=== PATIENT | male | born 1970 | race Caucasian/White ===

== ENCOUNTER 2020-03-14 00:35 | Inpatient (IN) | payer OTHER ==
[2020-03-14] VITALS (45 sets, daily range): BP systolic 124–166; BP diastolic 66–96
[~2020-03-14] VITALS: Ht 177.8 cm; Wt 157.9 kg
--- NOTE | 2020-03-14 00:40 | NUR ---
PT CAME TO THE ED C/O SOB X 1 DAY. PT TACHYPNEIC. PER EMS BS>400 ON HTE SCENE. PT DENIED ANY HX OF DIABETES.. PT AAOX4, SATTING 100% ON ROOM AIR. PT CONNECTED TO THE SENIOR LOSS CONTROL SPECIALIST AND POX
--- NOTE | 2020-03-14 01:09 | NUR ---
EKG AT BEDSIDE
--- NOTE | 2020-03-14 01:09 | NUR ---
BLOOD COLLECTED AND SENT TO LAB
--- NOTE | 2020-03-14 01:11 | NUR ---
XRAY AT BEDSIDE
[2020-03-14 01:13] LABS: BASOPHILS # (AUTO) 0.2 /CMM (0.0-0.2); BASOPHILS % (AUTO) 1.3 % (0.0-2.0); HEMATOCRIT 55 % (39-51); LYMPHOCYTES # (AUTO) 2.1 /CMM (0.8-4.8); LYMPHOCYTES % (AUTO) 11.1 % (20.0-44.0); MEAN CORPUSCULAR HGB CONC 31 g/dl (31.0-36.0); MEAN CORPUSCULAR VOLUME 93 fL (80-96); MONOCYTES % (AUTO) 5.2 % (2.0-12.0); NEUTROPHILS # (AUTO) 15.6 /CMM (1.8-8.9); NEUTROPHILS % (AUTO) 82.4 % (43.0-81.0); PLATELET COUNT (AUTO) 295 /CMM (150-450); RED BLOOD CELL COUNT(AUTO) 5.97 MIL/uL (4.5-6.0); WHITE BLOOD COUNT (AUTO) 18.9 K/uL (4.3-11.0)
[2020-03-14 01:50] LABS: ALANINE AMINOTRANSFERASE 20 U/L (12-78); ALBUMIN 3.4 g/dL (3.4-5.0); ALKALINE PHOSPHATASE 121 U/L (46-116); ASPARTATE AMINOTRANSFERASE 12 U/L (15-37); B-TYPE NATRIURETIC PEPTIDE 154 PG/ML (0-125); BILIRUBIN,DIRECT 0.1 mg/dL (0.0-0.2); BILIRUBIN,TOTAL 0.4 mg/dL (0.2-1.0); CALCIUM, SERUM 8.4 mg/dL (8.5-10.1); CHLORIDE 99 mmol/L (98-107); CREATININE 1.7 mg/dL (0.6-1.3); POTASSIUM 3.3 mmol/L (3.5-5.1); SODIUM SERUM 137 mmol/L (136-145); TOTAL PROTEIN, SERUM 7.7 g/dL (6.4-8.2); UREA NITROGEN, BLOOD 17 mg/dL (7-18)
--- NOTE | 2020-03-14 01:52 | NUR ---
COVID SWAB COLLECTED AND SENT TO LAB
[2020-03-14 02:03] LABS: CARBON DIOXIDE 6 mmol/L (21-32); GLUCOSE 545 mg/dL (74-106)
[2020-03-14 02:04] LABS: D-DIMER 1.06 mg/L(FEU (0.17-0.50)
[2020-03-14] MEDS ORDERED: INSULIN REGULAR, HUMAN 100 UNIT/ML 10 ML VIAL ONE (02:06)
--- NOTE | 2020-03-14 02:20 | NUR ---
PATIENT IS STARTED ON IV INSULIN DRIP AT 7 UNITS PER HOUR PER MD'S ORDER AND 3 RN VERIFIED DOSAGE. PATIENT IS ON WARD SERVICE SUPERVISOR.
[2020-03-14] MEDS ORDERED: INSULIN REGULAR, HUMAN 100 UNIT in IV NS 0.9% 99 ML IV PRN ×4 (02:30→07:30)
[2020-03-14] MEDS ORDERED: IV NS 0.9% 1,000 ML IV ONE ×2 (02:30)
--- NOTE | 2020-03-14 04:26 | NUR ---
BREATHING TX IN PROGRESS
--- NOTE | 2020-03-14 04:26 | NUR ---
RT AT BEDSIDE
--- NOTE | 2020-03-14 04:28 | NUR ---
PATIENT IS AMBULATED TO THE RESTROOM WITH ASSISTANCE.
[2020-03-14] MEDS ORDERED: IPRATROPIUM NEB FS 0.5 MG/2.5 ML AMPUL.NEB NEB ONE (04:30)
[2020-03-14] MEDS ORDERED: ALBUTEROL FS 2.5 MG/3 ML VIAL.NEB NEB ONE (04:30)
--- NOTE | 2020-03-14 04:46 | NUR ---
PATIENT IS FOUND WITH THE IV LINE PULLED OUT WITH INSULIN DRIPPING ON FLOOR.
--- NOTE | 2020-03-14 04:47 | NUR ---
IV INSULIN DRIP IS CONTINUED ON THE LEFT HAND.
--- NOTE | 2020-03-14 04:47 | NUR ---
Jimena johnson in ED - 03/14/20 at 0526 by KELLIE IV INSULIN IS CONTINUED ON THE LEFT HAND IV
--- NOTE | 2020-03-14 04:50 | NUR ---
UNABLE TO FIND AVAILABLE VEIN FOR IV ACCESS. WILL KEEP TRYING.
--- NOTE | 2020-03-14 05:13 | NUR ---
IV ESTABLISHED ON RIGHT FOREARM 20G.
--- NOTE | 2020-03-14 06:54 | NUR ---
BED ASSIGNMENT 251
--- NOTE | 2020-03-14 07:10 | NUR ---
ATTEMPTED TO GIVE REPORT, NURSE NOT AVAILABLE
[2020-03-14] MEDS ORDERED: ONDANSETRON HCL/PF 4 MG/2 ML VIAL IVP PRN (07:30)
[2020-03-14] MEDS ORDERED: IV NS 0.9% 1,000 ML IV PRN (07:30)
[2020-03-14] MEDS ORDERED: Z GUARD REMEDY 2 OZ OINT TP PRN (07:30)
--- NOTE | 2020-03-14 07:39 | NUR ---
REPORT GIVEN TO STUART HAUSER FOR RACHAEL
--- NOTE | 2020-03-14 08:00 | NUR ---
RN NOTES RECEIVED PT FROM ER , A/Ox4, ON 2L O2 N/C , SOB NOTED, O2 SAT 98-100%, ON TELE SR , L HAND AND FOREARM IV SITS G 20 , CLEAN, DRY AND INTACT, INSULIN GTT AT 10 U/HR, PT HAS DISTENDED ABDOMEN, BUT SOFT TO TOUCH, NO SKIN ISSUES NOTED, SR UP x3, CALL LIGHT WITHIN EASY REACH, BED LOCKED AND IN LOWEST POSITION, CONTINUE TO MONITOR AND CHECK BG Q1 HR PER ORDER .
[2020-03-14] MEDS: ENOXAPARIN SODIUM 40 MG/0.4 ML DISP.SYRIN SQ SCH (08:22)
[2020-03-14] MEDS: PANTOPRAZOLE 40 MG VIAL IV SCH (08:22)
[2020-03-14] MEDS: POTASSIUM CL. PREMIX PERIPHER. 50 ML IV SCH ×8 (08:37→16:07)
[2020-03-14] MEDS: Potassium Chloride 40 MEQ in IV NS 0.9% 1,000 ML IV SCH ×2 (09:07→17:29)
[2020-03-14 09:14] LABS: CALCIUM, SERUM 8.8 mg/dL (8.5-10.1); CREATININE 1.8 mg/dL (0.6-1.3); MAGNESIUM 2.7 mg/dL (1.8-2.4); POTASSIUM 3.2 mmol/L (3.5-5.1)
[2020-03-14 11:55] LABS: CALCIUM, SERUM 8.7 mg/dL (8.5-10.1); CREATININE 1.9 mg/dL (0.6-1.3)
[2020-03-14 12:02] LABS: POTASSIUM 2.7 mmol/L (3.5-5.1)
--- NOTE | 2020-03-14 13:00 | NUR ---
RN NOTES PT IS UNABLE TO VOID, CRIMPING PRESS OPERATOR NOITFED , RIZO INSERTED PER CRIMPING PRESS OPERATOR ORDER, 600 CLEAR YELLOW URINE DRAINED .
[2020-03-14 13:56] LABS: MAGNESIUM 2.6 mg/dL (1.8-2.4); PHOSPHORUS 2.2 mg/dL (2.5-4.9)
--- NOTE | 2020-03-14 14:00 | NUR ---
RN NOTES DR WAGNER SAGASTUME REGARDING BMP RESULTS.
[2020-03-14 16:40] LABS: CALCIUM, SERUM 9.1 mg/dL (8.5-10.1); CREATININE 1.9 mg/dL (0.6-1.3); POTASSIUM 3.4 mmol/L (3.5-5.1)
[2020-03-14 16:49] LABS: MAGNESIUM 2.4 mg/dL (1.8-2.4); PHOSPHORUS 1.3 mg/dL (2.5-4.9)
[2020-03-14] MEDS ORDERED: Sodium Phosphate 15 MMOL in IV NS 0.9% 245 ML IV SCH (18:00)
--- NOTE | 2020-03-14 18:00 | NUR ---
RN NOTES DR WAGNER SAGASTUME REGARDING BMP RESULTS.
[2020-03-14 18:04] LABS: POTASSIUM 3.8 mmol/L (3.5-5.1)
[2020-03-14 18:08] LABS: MAGNESIUM 2.4 mg/dL (1.8-2.4); PHOSPHORUS 1.1 mg/dL (2.5-4.9)
--- NOTE | 2020-03-14 19:00 | NUR ---
RN NOTES DR FINNEY PAGED REGARDING BLOOD GLUCOSE RESULTS , NO RETURN CALLS YET .
--- NOTE | 2020-03-14 19:20 | NUR ---
RN NOTES VSS STABLE, IVF NS WITH 40 MEQ KCL RUNNING, PT MARGAUX ANY DISTRESS, NO RETURN CALL FROM KEVIN RASMUSSEN ENDOSE TO EFFICIENCY CLERK NURSE FOR CONTINUITY OF CARE.
--- NOTE | 2020-03-14 19:46 | NUR ---
RN NOTE DR. EDWARD CALLED BACK WITH ORDER TO DC CURRENT IVF AND ADMINISTER NS D5 WITH KCL 10 MEQ @ 125CC/HOUR. ORDER NOTED AND CARRIED OUT.
[2020-03-14] MEDS ORDERED: IV D5/ NS 10 MEQ KCL 1000 ML IV PRN ×2 (20:00)
[2020-03-14] MEDS ORDERED: SODIUM CHLORIDE IV ONE ×2 (20:00)
[2020-03-14] MEDS ORDERED: POTASSIUM CHLORIDE IV ONE ×2 (20:00)
[2020-03-14] MEDS ORDERED: DEXTROSE IV ONE ×2 (20:00)
--- NOTE | 2020-03-14 20:30 | NUR ---
RN NOTE SPOKE TO ANGEL LUIS FROM PHARMACY. IFV STILL BEING PREPARED. WILL ADMINISTER ONCE DELIVERED TO UNIT.
[2020-03-14 20:40] LABS: CALCIUM, SERUM 8.8 mg/dL (8.5-10.1); CREATININE 2.1 mg/dL (0.6-1.3); POTASSIUM 3.7 mmol/L (3.5-5.1)
[2020-03-14 20:52] LABS: PHOSPHORUS 0.9 mg/dL (2.5-4.9)
[2020-03-14 20:53] LABS: MAGNESIUM 2.3 mg/dL (1.8-2.4)
[2020-03-14] MEDS ORDERED: Potassium Chloride 40 MEQ in IV NS 0.9% 1,000 ML IV PRN (21:00)
--- NOTE | 2020-03-14 21:04 | NUR ---
RN NOTE SEEN AND EXAMINED BY BASIL CHAPARRO NP. WITH ORDER FOR NEW INSULIN DRIP PROTOCOL BLOOD SUGAR X 2.8/100 EQUALS INSULIN DRIP RATE. ALSO WITH ORDER TO DC CURRENT IVF AND ADMINISTER NS D10 @ 80CC/HOUR, NS KCL40 MEQ @ 100CC/HOUR, AND KPHOS 30MILLIMOLS. ORDER NOTED AND CARRIED OUT.
[2020-03-14] MEDS ORDERED: Sodium Chloride 154 MEQ in IV 10% DEXTROSE 1,000 ML IV PRN (22:00)
[2020-03-14] MEDS ORDERED: IV 10% DEXTROSE 1,000 ML IV PRN (22:00)
[2020-03-14] MEDS: POTASSIUM PHOSPHATE MM 15 MMOL in IV NS 0.9% 250 ML IV SCH (22:56)
--- NOTE | 2020-03-14 23:05 | NUR ---
RN NOTE NEW ORDER FROM BASIL CHAPARRO NP. INSULIN PROTOCOL : BLOOD SUGAR X 3/100 = INSULIN RATE
[2020-03-14] MEDS: BLOOD SUGAR DIAGNOSTIC 1 EACH STRIP IN SCH (23:09)
[2020-03-14 23:39] LABS: CREATININE 2.3 mg/dL (0.6-1.3); POTASSIUM 3.4 mmol/L (3.5-5.1)
[2020-03-14 23:43] LABS: MAGNESIUM 2.3 mg/dL (1.8-2.4)
[2020-03-14 23:44] LABS: PHOSPHORUS 0.9 mg/dL (2.5-4.9)
--- NOTE | 2020-03-14 23:45 | NUR ---
RN NOTE RECEIVED ALERT FOR PHOSPHROUS 0.9. PT IS ALREADY ON POTASSIUM PHOSPHATE IV RUNNING. WILL FOLLOW UP WHEN INFUSION IS COMPLETED. PT WITH REPEAT BMP EVERY 3 HOURS.
[2020-03-15] VITALS (15 sets, daily range): BP systolic 122–158; BP diastolic 71–86
[2020-03-15] MEDS: BLOOD SUGAR DIAGNOSTIC 1 EACH STRIP IN SCH ×11 (00:02→10:00)
[2020-03-15] MEDS: POTASSIUM PHOSPHATE MM 15 MMOL in IV NS 0.9% 250 ML IV SCH (01:05)
[2020-03-15] MEDS: INSULIN REGULAR, HUMAN 100 UNIT in IV NS 0.9% 99 ML IV PRN ×4 (02:06→09:43)
[2020-03-15 02:38] LABS: CREATININE 2.2 mg/dL (0.6-1.3); MAGNESIUM 2.2 mg/dL (1.8-2.4); POTASSIUM 3.3 mmol/L (3.5-5.1)
[2020-03-15 02:46] LABS: APPEARANCE,URINE CLEAR (CLEAR); BILIRUBIN,URINE SMALL (NEGATIVE); BLOOD, URINE MODERATE Ery/uL (NEGATIVE); COLOR,URINE YELLOW (YELLOW); KETONES,URINE >=80 (NEGATIVE); LEUKOCYTE ESTERASE ,URINE NEGATIVE (NEGATIVE); NITRITE, URINE NEGATIVE (NEGATIVE); PH,URINE 5.5 (5.0-8.0); PROTEIN,URINE 100 mg/dl (NEGATIVE); UGLUCOSE >=1000 mg/dL (NEGATIVE); UROBILINOGEN,URINE 0.2 EU/dL (0.2)
[2020-03-15 02:58] LABS: BACTERIA,URINE Few /HPF (None Seen); CREATININE, URINE 41.6 MG/DL (30.0-125.0); RBC,URINE 0-2 /HPF (0-2); SQUAMOUS EPITHELIAL CELL,UR Few /HPF (None Seen); URINE TOTAL PROTEIN 159.1 mg/dL (0-11.9); WBC,URINE 0-2 /HPF (0-3)
[2020-03-15 03:37] LABS: EOSINOPHIL,URINE None Seen
--- NOTE | 2020-03-15 04:05 | NUR ---
RN NOTE PT ALERT AND ORIENTED X 3. OFFERED TO BATHE PATIENT AND CHANGE LINENS BUT PT REFUSED STATING THAT "IT'S OKAY." PT AGREED FOR PARTIAL LINEN CHANGE.
[2020-03-15 04:47] LABS: BASOPHILS % (AUTO) 0.1 % (0.0-2.0); HEMATOCRIT 46 % (39-51); HEMOGLOBIN 15.1 g/dL (13.5-17.5); LYMPHOCYTES % (AUTO) 8.1 % (20.0-44.0); MEAN CORPUSCULAR HGB CONC 33 g/dl (31.0-36.0); MEAN CORPUSCULAR VOLUME 87 fL (80-96); MONOCYTES # (AUTO) 1.1 /CMM (0.1-1.30); MONOCYTES % (AUTO) 9.1 % (2.0-12.0); NEUTROPHILS # (AUTO) 9.8 /CMM (1.8-8.9); NEUTROPHILS % (AUTO) 82.7 % (43.0-81.0); PLATELET COUNT (AUTO) 151 /CMM (150-450); RED BLOOD CELL COUNT(AUTO) 5.36 MIL/uL (4.5-6.0); WHITE BLOOD COUNT (AUTO) 11.9 K/uL (4.3-11.0)
[2020-03-15 05:30] LABS: ALBUMIN 2.8 g/dL (3.4-5.0); BILIRUBIN,TOTAL 0.2 mg/dL (0.2-1.0); CALCIUM, SERUM 8.8 mg/dL (8.5-10.1); CREATININE 2.2 mg/dL (0.6-1.3); PHOSPHORUS 1.3 mg/dL (2.5-4.9); POTASSIUM 3.1 mmol/L (3.5-5.1); TOTAL PROTEIN, SERUM 6.3 g/dL (6.4-8.2)
[2020-03-15 05:34] LABS: THYROID STIMULATING HORMONE 0.275 uIU/mL (0.358-3.74)
--- NOTE | 2020-03-15 05:40 | NUR ---
RN NOTE NOTED WITH POTASSIUM OF 3.1. PT IS CURRENTLY RUNNING KCL 40MEQ IN NS IV @ 100CC/HOUR. NOTIFIED BASIL CHAPARRO NP.
--- NOTE | 2020-03-15 06:41 | NUR ---
RN NOTE BASIL CHAPARRO AWARE OF CURRENT LABS. WITH ORDER TO ADMINISTER KCL 20MEQ IVPB. ORDER NOTED AND CARRIED OUT.
[2020-03-15] MEDS: POTASSIUM CL. PREMIX PERIPHER. 50 ML IV SCH ×2 (06:49→08:28)
--- NOTE | 2020-03-15 07:16 | NUR ---
RN CLOSING NOTE PT AWAKE AND ALERT X 3. PT CURRENTLY ON ROOM AIR AND WITHOUT SIGNS OF RESPIRATORY DISTRESS. RIZO CATHETER PATENT AND IN PLACE DRAINING CLEAR YELLOW URINE. IF MEDICATIONS RUNNING ORDERED WITHOUT SIGNS OF COMPLICATIONS AT SITES. ALL NEEDS MET AND ATTENDED TO. CALL LIGHT WITHIN REACH, SAFETY MEASURES IN PLACE, ENDORSED TO STUART FRANK FOR CONTINUAITON OF CARE.
--- NOTE | 2020-03-15 07:30 | NUR ---
RN OPENING NOTE: Patient received in bed and asleep. Easily awakens but appears to be groggy. Alert, awake and oriented x4 and able to make needs known. No pain reported nor noted at the moment. Tele monitor showing sinus rhythm in the 80s. On room air with no resp. distress and no SOB noted. IV sites clean, dry, patent and intact. Iv infusion of D10 @ 80mls/hr, NS KCL 40meq @ 100mls/hr and scheduled bag of KCL 10meq and current insulin drip infusing and running well. No adverse reactions noted. Received report to communicate information only to Mother. Call light in reach. Bed locked, low and at semi-barrera's position. Side rails up x3. Safety ensured and observed. Will continue to monitor.
[2020-03-15] MEDS: PANTOPRAZOLE 40 MG VIAL IV SCH (09:41)
[2020-03-15] MEDS: ENOXAPARIN SODIUM 40 MG/0.4 ML DISP.SYRIN SQ SCH (09:43)
--- NOTE | 2020-03-15 10:00 | NUR ---
RN NOTE: Informed patient that called earlier and asked for an update regarding his condition but per his request, no information was given. Patient's mother (Jyada goddard) also called and was given an update regarding his condition.
[2020-03-15 11:35] LABS: CALCIUM, SERUM 9.2 mg/dL (8.5-10.1); CREATININE 2.1 mg/dL (0.6-1.3); MAGNESIUM 2.5 mg/dL (1.8-2.4); PHOSPHORUS 1.5 mg/dL (2.5-4.9)
[2020-03-15] MEDS ORDERED: INSULIN REGULAR, HUMAN 100 UNIT/ML 10 ML VIAL SQ PRN (12:30)
[2020-03-15] MEDS: BLOOD SUGAR DIAGNOSTIC 1 EACH STRIP VI SCH ×3 (13:00→22:35)
[2020-03-15] MEDS: INSULIN REGULAR, HUMAN 100 UNIT/ML 3 ML VIAL SQ PRN ×2 (13:00→17:28)
[2020-03-15] MEDS ORDERED: *INSULIN REGULAR(HUMULIN R)HUM 100 UNIT/ML VIAL SQ PRN (13:00)
[2020-03-15] MEDS ORDERED: DEXTROSE 50%-WATER 50 ML DISP.SYRIN IV PRN (13:00)
--- NOTE | 2020-03-15 13:00 | NUR ---
rn note: accucheck machine used for patient earlier was not transmitting results. Accucheck results for q1h checks as follows: 0800: 256 0900: 219 1000: 229 1100: 253 1200: 250
--- NOTE | 2020-03-15 14:10 | NUR ---
GREEN TIRE INSPECTOR NOTE: PATIENT TRANSFERRED IN STABLE CONDITION TO [facility] WITH ENDORSEMENT GIVEN TO STUART DAMICO. PATIENT WAS SEEN EARLIER BY DR. WEISS WITH NEW ORDERS NOTED AND CARRIED OUT.
[2020-03-15] MEDS: POTASSIUM PHOSPHATE MM 7.5 MMOL in IV NS 0.9% 100 ML IV SCH ×2 (17:29→20:48)
[2020-03-15] MEDS: glipiZIDE 10 MG TABLET PO SCH (17:30)
[2020-03-15] MEDS: INSULIN GLARGINE, 100 UNIT/ML CARTRIDGE SQ SCH (17:58)
--- NOTE | 2020-03-15 19:50 | NUR ---
ms johana initial notes received report from am nurse Bhavya and seen pt in bed awake and alert watching tv at this time , no signs of any distress noted . in room air. he still with IV infusing on his right forearm. Encourage him to used the call light if he needs some help or needs the nurse. kept him warm and comfortable at all times. Place call light at reach will continue monitoring.
[2020-03-15 23:06] LABS: CALCIUM, SERUM 9.3 mg/dL (8.5-10.1); CREATININE 2.3 mg/dL (0.6-1.3); PHOSPHORUS 2.6 mg/dL (2.5-4.9); POTASSIUM 2.9 mmol/L (3.5-5.1)
[2020-03-16] MEDS ORDERED: DEXTROSE 50%-WATER 50 ML DISP.SYRIN IV PRN (00:30)
[2020-03-16] MEDS ORDERED: POTASSIUM CHLORIDE 20 MEQ TAB.PRT.SR PO ONE (00:30)
[2020-03-16] MEDS: BLOOD SUGAR DIAGNOSTIC 1 EACH STRIP IN SCH ×6 (01:20→21:12)
--- NOTE | 2020-03-16 02:07 | NUR ---
miner placer note B blood sugar checked as ordered 258, 12 units of insulin given as ordered. Potassium 80 meq po given as well as ordered. pt tolerated well. no n/v noted. no signs of hyper glycemia noted. will continue monitoring.
[2020-03-16] MEDS: INSULIN REGULAR, HUMAN 100 UNIT/ML 3 ML VIAL SQ PRN ×6 (02:09→20:40)
--- NOTE | 2020-03-16 06:19 | NUR ---
ms lead ramp agent notes pt resting with eyes closed but arouses to touch, denies any pain or any discomfort. Blood sugar checked done 251, 12 units of insulin SQ given as ordered. no signs of hyper glycemia noted. Morning care also done. Metzger to gravity draining well with clear yellow output noted .all due meds given and all needs met. kept him warm and comfortable at all times. will continue monitoring. place call light at reach.
[2020-03-16 07:32] LABS: CALCIUM, SERUM 9.6 mg/dL (8.5-10.1); CREATININE 2.2 mg/dL (0.6-1.3); MAGNESIUM 2.6 mg/dL (1.8-2.4); PHOSPHORUS 2.3 mg/dL (2.5-4.9)
[2020-03-16 07:41] LABS: BASOPHILS % (AUTO) 0.2 % (0.0-2.0); HEMATOCRIT 43 % (39-51); MEAN CORPUSCULAR HGB CONC 32 g/dl (31.0-36.0); MEAN CORPUSCULAR VOLUME 86 fL (80-96); MONOCYTES # (AUTO) 0.7 /CMM (0.1-1.30); MONOCYTES % (AUTO) 10.6 % (2.0-12.0); NEUTROPHILS # (AUTO) 5.1 /CMM (1.8-8.9); NEUTROPHILS % (AUTO) 75.2 % (43.0-81.0); PLATELET COUNT (AUTO) 134 /CMM (150-450); RED BLOOD CELL COUNT(AUTO) 5.05 MIL/uL (4.5-6.0); WHITE BLOOD COUNT (AUTO) 6.8 K/uL (4.3-11.0)
[2020-03-16 08:00] VITALS: BP 152/97
[2020-03-16] MEDS: glipiZIDE 10 MG TABLET PO SCH ×2 (08:57→16:48)
[2020-03-16] MEDS: PANTOPRAZOLE 40 MG VIAL IV SCH (08:57)
[2020-03-16] MEDS: ENOXAPARIN SODIUM 40 MG/0.4 ML DISP.SYRIN SQ SCH (09:02)
[2020-03-16] MEDS: INSULIN GLARGINE, 100 UNIT/ML CARTRIDGE SQ SCH ×2 (09:03→20:38)
[2020-03-16] MEDS: POTASSIUM CHLORIDE 20 MEQ TAB.PRT.SR PO SCH ×2 (10:19→12:05)
[2020-03-16] MEDS ORDERED: Sodium Bicarbonate 100 MEQ in IV 1/2NS 1000 ML 1,000 ML IV PRN (10:30)
[2020-03-16] MEDS ORDERED: POTASSIUM CHLORIDE 10 MEQ TABLET.SA PO ONE (10:30)
[2020-03-16] MEDS ORDERED: IV NS 0.9% 1,000 ML IV PRN (12:00)
[2020-03-16] MEDS ORDERED: K PHOS NEUTRAL 250 MG TABLET PO ONE (12:30)
[2020-03-16 16:00] VITALS: BP 177/91
[2020-03-16 20:00] VITALS: BP 132/71
--- NOTE | 2020-03-16 21:44 | NUR ---
IVF CLARIFICATION PATIENT HAS TWO SEPARATE IVF ORDERED. CONTACTED CRISTAL FOR CLIARIFICATION. NS TO BE DISCONTINUED. AND PT TO BE CONTINUED. ON 09/01 NS WITH SODIUM BICARB A 50 ML PER HOUR.
[2020-03-17] MEDS: INSULIN REGULAR, HUMAN 100 UNIT/ML 3 ML VIAL SQ PRN ×5 (00:40→21:52)
[2020-03-17] MEDS: BLOOD SUGAR DIAGNOSTIC 1 EACH STRIP IN SCH ×6 (00:44→21:50)
[2020-03-17 01:26] LABS: CALCIUM, SERUM 9.3 mg/dL (8.5-10.1); CREATININE 1.9 mg/dL (0.6-1.3); PHOSPHORUS 2.3 mg/dL (2.5-4.9)
[2020-03-17] MEDS ORDERED: NEUTRA PHOS 1 POWD.PACKET PO ONE (02:30)
[2020-03-17] MEDS ORDERED: POTASSIUM CHLORIDE 20 MEQ TAB.PRT.SR PO ONE (02:30)
--- NOTE | 2020-03-17 03:03 | NUR ---
LOW PHOS AND LOW POTASSIUM LEVEL; REPLACED WITH MEDS ORDERED. followed up with mau light manager of internal regarding labs wrote new orders for one time dose of potassium and kphos which were administered as ordered. patient in no apparent distress. eric marroquin to monitor new labs scheduled for this am.
--- NOTE | 2020-03-17 06:37 | NUR ---
MS CLOSING NOTES. PT RESTING WITH EYES CLOSED AROUSES TO VOICE, IN NO APPARENT DISTRESS RESP EVEN AND UNLABORED. PT REPORTS HE IS STILL FEELING SLEEPY. RIZO DRAINING TO GRAVITY CLEAR YELLOW URINE. IVF INFUSING TO LEFT HAND WITH NO S/S O INFILTRATION. DENIES PAIN CALL LIGHT IN REACH BED DOWN AND LOCED SRX2
--- NOTE | 2020-03-17 07:30 | NUR ---
MS/RN Opening note Patient received from assistant shift supervisor. A/O X4, vital signs within normal range for patient, no fevers or complaints of pin at this time. Heplock to left AC, infusing fluids at 75ml/hr, no signs of infiltration seen. Metzger catheter draining to gravity, clear colored urine. Call light within reach, bed in low setting, side rails X2 in upright position. Will continue to monitor and ensure safety. Addendum: 03/17/20 at 0931 by DENZEL MONTOYA IV fluids at 50ml/hr
[2020-03-17 08:00] VITALS: BP 154/75
[2020-03-17] MEDS: PANTOPRAZOLE 40 MG VIAL IV SCH (08:39)
[2020-03-17] MEDS: glipiZIDE 10 MG TABLET PO SCH ×2 (08:39→16:31)
[2020-03-17] MEDS: ENOXAPARIN SODIUM 40 MG/0.4 ML DISP.SYRIN SQ SCH (08:42)
[2020-03-17] MEDS: INSULIN GLARGINE, 100 UNIT/ML CARTRIDGE SQ SCH ×2 (08:54→21:54)
[2020-03-17 09:07] LABS: CALCIUM, SERUM 9.5 mg/dL (8.5-10.1); CREATININE 1.9 mg/dL (0.6-1.3); PHOSPHORUS 2.7 mg/dL (2.5-4.9); POTASSIUM 2.9 mmol/L (3.5-5.1)
--- NOTE | 2020-03-17 09:23 | NUR ---
MS/RN Blood sugar Blood sugar at 0900 222, insulin coverage as per order.
[2020-03-17] MEDS ORDERED: POTASSIUM CHLORIDE 20 MEQ TAB.PRT.SR PO SCH (10:00)
[2020-03-17] MEDS ORDERED: IV 1/2NS 1000 ML 1,000 ML IV PRN (10:55)
[2020-03-17] MEDS ORDERED: POTASSIUM CHLORIDE 10 MEQ TABLET.SA PO ONE (11:00)
--- NOTE | 2020-03-17 11:19 | NUR ---
MS/RN Labs Morning labs reviewed: -K+ 2.9 -BUN 27 -Creat 1.9 Potassium replaced with 20meq oral.
[2020-03-17 14:20] LABS: PTH, INTACT 18 pg/mL (15-65)
--- NOTE | 2020-03-17 14:49 | NUR ---
MS/RN S/B Dr Raman Seen by Dr Raman - patient to be discharged to home today, instructed to follow up with primary care doctor in one week for further diabetic teaching.
[2020-03-17 16:00] VITALS: BP 133/74
--- NOTE | 2020-03-17 17:45 | NUR ---
MS/RN Diabetic teaching Patient educated as to how to check blood glucose and how to draw up and inject insulin. Return demonstration given. All questions answered.
--- NOTE | 2020-03-17 18:02 | NUR ---
MS/RN End note Dr Raman called and informed that patient requires further education/teaching with regards to his new diagnose of diabetes. management accounts manager amade aware and will arrange for home health to be set up, with first visit being Thursday. Awaiting call back. All medications administered as ordered, all questions and concerns addressed, will endore to shiftman.
--- NOTE | 2020-03-17 19:10 | NUR ---
RN OPENING NOTES Received patient awake on bed, resting. On RA, no complaints made at this time. Pt requested to disconnect IV line, patient noted drinking fluids. For discharge, awaiting for home health and diabetes teachings. Will continue to monitor accordingly.
[2020-03-17 20:00] VITALS: BP 134/63
--- NOTE | 2020-03-17 22:29 | NUR ---
RN NOTES Taught and asked patient to return demonstrate blood sugar check and Insulin administration. Patient verbalized understanding, able to demonstrate procedure well. Will continue to review and reenforce education later.
[2020-03-18] MEDS: BLOOD SUGAR DIAGNOSTIC 1 EACH STRIP IN SCH ×3 (01:06→08:55)
[2020-03-18] MEDS: INSULIN REGULAR, HUMAN 100 UNIT/ML 3 ML VIAL SQ PRN ×2 (01:07→05:06)
--- NOTE | 2020-03-18 06:16 | NUR ---
RN CLOSING NOTES Pt asleep, easily awaken. On RA, no complaints made within the shift. All nursing needs attended. For dietary consult. For case management consult for home health. Initiated teachings on blood sugar check and insulin administration, return demonstration done by patient, reinforcement needed. Provided printed materials as indicated. Endorsed.
[2020-03-18 07:02] LABS: BASOPHILS % (AUTO) 0.3 % (0.0-2.0); EOSINOPHILS % (AUTO) 1.3 % (0.0-6.0); HEMATOCRIT 41 % (39-51); HEMOGLOBIN 13.3 g/dL (13.5-17.5); LYMPHOCYTES # (AUTO) 1.9 /CMM (0.8-4.8); LYMPHOCYTES % (AUTO) 33.3 % (20.0-44.0); MEAN CORPUSCULAR HGB CONC 33 g/dl (31.0-36.0); MEAN CORPUSCULAR VOLUME 85 fL (80-96); MONOCYTES # (AUTO) 0.7 /CMM (0.1-1.30); MONOCYTES % (AUTO) 11.3 % (2.0-12.0); NEUTROPHILS # (AUTO) 3.1 /CMM (1.8-8.9); NEUTROPHILS % (AUTO) 53.8 % (43.0-81.0); PLATELET COUNT (AUTO) 142 /CMM (150-450); RED BLOOD CELL COUNT(AUTO) 4.78 MIL/uL (4.5-6.0); WHITE BLOOD COUNT (AUTO) 5.8 K/uL (4.3-11.0)
--- NOTE | 2020-03-18 07:30 | NUR ---
RN Opening note Received patient in bed, AO x 4, able to responds all stimuli. Denies pain or distress, skin is warm to touch clean/dry, intact IV site. Respiratory even and unlabored in room air, no distress observed. Keep bed in locked with elevated HOB for secure airway and aspiration precaution. Call light within reach, will continue to monitor.
[2020-03-18] MEDS: glipiZIDE 10 MG TABLET PO SCH (07:39)
[2020-03-18 07:53] LABS: ALBUMIN 2.4 g/dL (3.4-5.0); BILIRUBIN,TOTAL 0.5 mg/dL (0.2-1.0); CALCIUM, SERUM 9.5 mg/dL (8.5-10.1); CREATININE 1.6 mg/dL (0.6-1.3); MAGNESIUM 2.2 mg/dL (1.8-2.4); TOTAL PROTEIN, SERUM 5.7 g/dL (6.4-8.2)
[2020-03-18 07:55] LABS: POTASSIUM 2.7 mmol/L (3.5-5.1)
[2020-03-18 08:16] VITALS: BP 153/92
[2020-03-18] MEDS: PANTOPRAZOLE 40 MG VIAL IV SCH (08:54)
[2020-03-18] MEDS: INSULIN GLARGINE, 100 UNIT/ML CARTRIDGE SQ SCH (08:58)
[2020-03-18] MEDS: ENOXAPARIN SODIUM 40 MG/0.4 ML DISP.SYRIN SQ SCH (09:00)
--- NOTE | 2020-03-18 10:53 | NUR ---
Potassium level 2.7 CL, received order potassium 80mEq po. noted and carried out.
[2020-03-18] MEDS: POTASSIUM CHLORIDE 20 MEQ TAB.PRT.SR PO SCH ×2 (11:16→12:18)
--- NOTE | 2020-03-18 13:00 | NUR ---
Given discharge instruction include new medication, check BS, side effraction, hypoglycemia and coping, patient verbally understanding. Denies pain or distress, in stable condition.
--- NOTE | 2020-03-18 14:30 | NUR ---
Spoke with Raisa beltran/Elizabeth regarding Lantus does not cover by insurance, blood sugar check directions. Dr. Raman agree to use pharmacy suggested substitute of insulin, and clarified direction of blood sugar check.
[2020-03-20 08:20] LABS: *SPE A/G RATIO 0.8 (0.7-1.7); *SPE ALBUMIN 2.4 g/dL (2.9-4.4); *SPE ALPHA-1-GLOBULIN 0.3 g/dL (0.0-0.4); *SPE ALPHA-2-GLOBULIN 0.9 g/dL (0.4-1.0); *SPE BETA GLOBULIN 1.1 g/dL (0.7-1.3); *SPE M-SPIKE Not Observed g/dL (Not Observed); *SPEGAMMA GLOBULIN 0.7 g/dL (0.4-1.8)
== END 2020-03-18 13:15 | disposition home health service (06) | DRG 420 ==
LOC: ER 00:37 → ICU 06:53 → MED 03-15 14:47
PROVIDERS: ADMIT Nurse Practitioner Acute Care
DX: E11.10 Type 2 diabetes mellitus with ketoacidosis without coma (principal); N17.0 Acute kidney failure with tubular necrosis; D72.829 Elevated white blood cell count, unspecified; E87.6 Hypokalemia; E87.2 Acidosis; E66.01 Morbid (severe) obesity due to excess calories; Z68.42 Body mass index [BMI] 45.0-49.9, adult; F43.9 Reaction to severe stress, unspecified; E44.1 Mild protein-calorie malnutrition
CPT/HCPCS: 36415; 71045-TC; 80048-TC; 80053-TC; 80061-TC; 80076-TC; 81000-TC; 82550-TC; 82570-TC; 82962-TC; 83735-TC; 83880; 83970; 84100-TC; 84155; 84155-TC; 84165; 84300-TC; 84443-TC; 84484-TC; 85025-TC; 85378-TC; 85730-TC; A9563; C9113; G0378; J1650; J1815; J3480; J3490; J7030; J7042; J7050